=== PATIENT | female | born 1990 | race Two or more races ===

== ENCOUNTER → 2020-01-27 | Outpatient (CLI) | payer OTHER | LOC: M LABSMTC 13:02 | PROVIDERS: ATTEND Pediatrics | DX: Z11.59 Encounter for screening for other viral diseases (principal) | CPT/HCPCS: C9803; U0003 ==

== ENCOUNTER → 2020-08-01 | Outpatient (CLI) | payer SELFPAY | LOC: M LABSMTC 09:44 | PROVIDERS: ATTEND Pediatrics | DX: Z20.822 Contact with and (suspected) exposure to COVID-19 (principal) ==

== ENCOUNTER → 2020-08-10 | Outpatient (CLI) | payer SELFPAY | LOC: M LABSMTC 12:05 | PROVIDERS: ATTEND Pediatrics | DX: Z20.822 Contact with and (suspected) exposure to COVID-19 (principal) ==

== ENCOUNTER 2021-06-26 16:11 | Emergency (ER) | payer OTHER ==
[~2021-06-26] VITALS: Ht 167.6 cm; Wt 58.1 kg
[2021-06-26 16:12] VITALS: BP 114/66
--- OUTSIDE RECORDS SUMMARY | 2021-06-26 16:21 | CCD | Continuity of Care Document ---
Author Author Kelly SAAVEDRA F.N.P. Organization Unknown Address [address] [place] [address] Phone [phone] Care Team Providers Care Blow Off Worker Name Role Phone Radha Sr DO AUTM [phone] Problems Description No Information Available Social History Type Date Description Comments Sex Unknown Sun Exposure moderate amount of sun exposure Sun Exposure Has never used tanning bed Sun Exposure Has never experienced blistering from sunburns Sun Exposure Uses 15-30 SPF Allergies, Adverse Reactions, Alerts Description No Known Drug Allergies Medications Active Medications SIG Qnty Indications Ordering Provide r Date Hydroquinone 4% Emulsion apply to trunk daily 30gm Roshni Saavedra F.N.P. 2020 Sodium Sulfacetamide/Sulfur Cleanser 10-5% Emulsion cleanse face daily 170gm CHELLE Vasquez PParishC 02/07/2020 Immunizations Description No Information Available Vital Signs Date Vital Result Comment 08/03/2020 2:56pm Body Temperature 96.7 F 05/20/2020 5:03pm BP Systolic 112 mmHg BP Diastolic 62 mmHg Weight 118.00 lb Body Temperature 98.7 F Results Description No Information Available Procedures Description No Information Available Medical Devices Description No Information Available Encounters Description No Information Available Assessments Date Code Description Provider 03/15/2021 L98.8 Other specified disorders of the skin and subcutaneous tissue Zina Ly.N.P. 01/29/2021 L98.8 Other specified disorders of the skin and subcutaneous tissue Zina Ly.N.P. 12/22/2020 L98.8 Other specified disorders of the skin and subcutaneous tissue Zina Ly.N.P. 12/22/2020 L81.9 Hyperpigmentation of skin Cassy Hazel 11/17/2020 L98.8 Other specified disorders of the skin and subcutaneous tissue Mary LyNHafsa. 11/17/2020 L81.9 Hyperpigmentation of skin Cassy Hazel Plan of Treatment Future Appointment(s):* 04/26/2021 5:00 pm - [facility] 12/22/2020 - Mary LyN.Aleah.* L98.8 Other specified disorders of the skin and subcutaneous tissue* Comments:* Patient tolerated well. Verbalizes understanding of Patient Education provided.Call with problems. * L81.9 Hyperpigmentation of skin* Comments:* See above. Functional Status Description No Information Available Mental Status Description No Information Available Referrals Description No Information Available
--- OUTSIDE RECORDS SUMMARY | 2021-06-26 16:21 | CCD | Continuity of Care Document ---
Author Author Kelly SAAVEDRA F.N.P. Organization Unknown Address [address] [place] [address] Phone [phone] Care Team Providers Care Pediatric Speech Therapist Name Role Phone Radha Sr DO AUTM Problems Description No Information Available Social History [...]
--- OUTSIDE RECORDS SUMMARY | 2021-06-26 16:21 | CCD ---
Author Author [facility] Organization [facility] Address Unknown Phone Unavailable Care Team Providers Care Superannuation Funds Manager Name Role Phone Bandar Ledesma Unavailable PROBLEMS Type Condition ICD9-CM Code BUR26-CX Code Onset Dates Condition S tatus W/U Status Risk SNOMED Code Notes Problem Irregular menses N92.6 Active confirmed 376 [id number] ALLERGIES No Known Allergies ENCOUNTERS from 1990 to 2021-06-04 Encounter Location Date Provider Diagnosis [facility] [address] [place] [address] [place] [address] May, Bandar Ledesma IMMUNIZATIONS No Information SOCIAL HISTORY Tobacco Use: Social History Observation Description Date Details (start date - stop date) Never Smoker Sex Assigned At : Social History Observation Description Sex Assigned At Unknown Language: Question Answer Notes Languages spoken: Slovenian Tobacco Use: Question Answer Notes Are you a: never smoker REASON FOR REFERRAL No Information VITAL SIGNS No information MEDICATIONS Medication SIG (Take, Route, Frequency, Duration) Notes Start Da te End Date Status Microgestin FE 1.5/30 1.5-30 MG-MCG 1 tablet Orally Once a day f or 28 day(s) Active PROCEDURES No Information RESULTS No Results REASON FOR VISIT Update Demographics - Additional Info Goals Section No Information Health Concerns No Information MEDICAL EQUIPMENT No Information MENTAL STATUS No Information FUNCTIONAL STATUS No Information ASSESSMENTS No Information PLAN OF TREATMENT Medication Medication Name Sig Start Date Stop Date Microgestin FE 1.5/30 1.5-30 MG-MCG 1 tablet Orally Once a day f or 28 day(s) Next Appt Details Provider Name:Bandar Ledesma, 2021-12- 15 09:40:00 AM, [address], , [place], [address], Insurance Providers Payer Name Payer Address Payer Phone Insured Name Patient Relati onship to Insured Coverage Start Date Coverage End Date [address] [phone] MARIO SNYDER
--- OUTSIDE RECORDS SUMMARY | 2021-06-26 16:21 | CCD ---
Author Author [facility] Organization [facility] Address Unknown Phone Unavailable Care Team Providers Care Director Of Retention Name Role Phone Bandar Ledesma Unavailable PROBLEMS Type Condition ICD9-CM Code BWT76-TA Code Onset Dates Condition S tatus W/U Status Risk SNOMED Code Notes Problem Irregular menses N92.6 Active confirmed [phone] 80021 ALLERGIES No Known Allergies ENCOUNTERS from 1990 to 2021-06-04 Encounter Location Date Provider Diagnosis [facility] [address] [place] [address] [place] [address] May, Bandar Ledesma IMMUNIZATIONS No Information SOCIAL HISTORY Tobacco Use: Social History Observation Description Date Details (start date - stop date) Never Smoker Sex Assigned At : Social History Observation Description Sex Assigned At Unknown Language: Question Answer Notes Languages spoken: Swiss Tobacco Use: Question Answer Notes Are you a: never smoker REASON FOR REFERRAL No Information VITAL SIGNS No information MEDICATIONS Medication SIG (Take, Route, Frequency, Duration) Notes Start Da te End Date Status Microgestin FE 1.5/30 1.5-30 MG-MCG 1 tablet Orally Once a day f or 28 day(s) Active PROCEDURES No Information RESULTS No Results REASON FOR VISIT Update Demographics - Personal Info Goals Section No Information Health Concerns No Information MEDICAL EQUIPMENT No Information MENTAL STATUS No Information FUNCTIONAL STATUS No Information ASSESSMENTS No Information PLAN OF TREATMENT Medication Medication Name Sig Start Date Stop Date Microgestin FE 1.5/30 1.5-30 MG-MCG 1 tablet Orally Once a day f or 28 day(s) Next Appt Details Provider Name:Bandar Ledesma, 2021-12- 15 09:40:00 AM, [address] [facility], , [place], [address], Insurance Providers Payer Name Payer Address Payer Phone Insured Name Patient Relati onship to Insured Coverage Start Date Coverage End Date [address] [phone] MARIO SNYDER
--- OUTSIDE RECORDS SUMMARY | 2021-06-26 16:21 | CCD ---
Author Author [facility] Organization [facility] Address Unknown Phone Unavailable Care Team Providers Care Terrazzo Layer Name Role Phone [place], María Elena NURSING AGENCY MANAGER Unavailable Unavailable [place], María Elena NURSING AGENCY MANAGER Unavailable Unavailable [place], María Elena NURSING AGENCY MANAGER Unavailable Unavailable [place], María Elena NURSING AGENCY MANAGER Unavailable Unavailable [place], María Elena NURSING AGENCY MANAGER Unavailable Unavailable [place], María Elena NURSING AGENCY MANAGER Unavailable Unavailable [place], María Elena NURSING AGENCY MANAGER Unavailable Unavailable [place], María Elena NURSING AGENCY MANAGER Unavailable Unavailable [place], María Elena NURSING AGENCY MANAGER Unavailable Unavailable [place], María Elena NURSING AGENCY MANAGER Unavailable Unavailable [place], María Elena NURSING AGENCY MANAGER Unavailable Unavailable [place], María Elena NURSING AGENCY MANAGER Unavailable Unavailable [place], María Elena NURSING AGENCY MANAGER Unavailable Unavailable [place], María Elena NURSING AGENCY MANAGER Unavailable Unavailable [place], María Elena NURSING AGENCY MANAGER Unavailable Unavailable [place], María Elena NURSING AGENCY MANAGER Unavailable Unavailable [place], María Elena NURSING AGENCY MANAGER Unavailable Unavailable [place], María Elena NURSING AGENCY MANAGER Unavailable Unavailable [place], María Elena NURSING AGENCY MANAGER Unavailable Unavailable [place], María Elena NURSING AGENCY MANAGER Unavailable Unavailable [place], María Elena NURSING AGENCY MANAGER Unavailable Unavailable [place], María Elena NURSING AGENCY MANAGER Unavailable Unavailable [place], María Elena NURSING AGENCY MANAGER Unavailable Unavailable [place], María Elena NURSING AGENCY MANAGER Unavailable Unavailable [place], María Elena NURSING AGENCY MANAGER Unavailable Unavailable [place], María Elena NURSING AGENCY MANAGER Unavailable Unavailable [place], María Elena NURSING AGENCY MANAGER Unavailable Unavailable [place], María Elena NURSING AGENCY MANAGER Unavailable Unavailable [place], María Elena NURSING AGENCY MANAGER Unavailable Unavailable [place], María Elena NURSING AGENCY MANAGER Unavailable Unavailable [place], María Elena NURSING AGENCY MANAGER Unavailable Unavailable [place], María Elena NURSING AGENCY MANAGER Unavailable Unavailable [place], María Elena NURSING AGENCY MANAGER Unavailable Unavailable [place], María Elena NURSING AGENCY MANAGER Unavailable Unavailable [place], María Elena NURSING AGENCY MANAGER Unavailable Unavailable [place], María Elena NURSING AGENCY MANAGER Unavailable Unavailable Elham THAKUR MD Unavailable Unavailable Elham THAKUR MD Unavailable Unavailable Elham THAKUR MD Unavailable Unavailable Elham THAKUR MD Unavailable Unavailable Re-disclosure Warning The records that you are about to access may contain information from federally-assisted alcohol or drug abuse programs. If such information is present, then the following federally mandated warning applies: This information has been disclosed to you from records protected by federal confidentiality rules (42 CFR part 2). The federal rules prohibit you from making any further disclosure of this information unless further disclosure is expressly permitted by the written consent of the person to whom it pertains or as otherwise permitted by 42 CFR part 2. A general authorization for the release of medical or other information is NOT sufficient for this purpose. The Federal rules restrict any use of the information to criminally investigate or prosecute any alcohol or drug abuse patient.The records that you are about to access may contain highly sensitive health information, the redisclosure of which is protected by Article 27-F of the [place] State Public Health law. If you continue you may have access to information: Regarding HIV / AIDS; Provided by facilities licensed or operated by the [facility] Office of Mental Health; or Provided by the [facility] Office for People With Developmental Disabilities. If such information is present, then the following [facility] mandated warning applies: This information has been disclosed to you from confidential records which are protected by state law. State law prohibits you from making any further disclosure of this information without the specific written consent of the person to whom it pertains, or as otherwise permitted by law. Any unauthorized further disclosure in violation of state law may result in a fine or residential sentence or both. A general authorization for the release of medical or other information is NOT sufficient authorization for further disc losure. Allergies and Adverse Reactions Type Description Substance Reaction Status Data Source(s ) No Known Drug Allergies No Known Drug Allergies [facility] Encounters Encounter Providers Location Date Indications Data Source(s ) Unknown [address] [facility] [address] 06/25/2021 12:00:00 AM EST eCW1 ([facility]) [place] [address] [facility] [address] 06/03/2021 12:00:00 AM EST eCW1 ([facility]) Unknown [address] [facility] [address] 06/03/2021 12:00:00 AM EST eCW1 ([facility]) Outpatient 03/19/2021 02:41:26 PM EDT - 021 03:14:43 PM EDT DocuTa ([facility]) Office Visit Attender: Roshni Hester [facility] Main Office 09/14/2020 04:00:00 PM EST [facility] Out[facility] Attender: CHAZ THAKUR MDConsultant: CHAZ VILLEGAS MD 09/03/2020 07:46:00 AM EST - 09/04/2020 10:16:00 AM [facility] Patient discharged. Outpatient Attender: CHAZ THAKUR MDConsultant: CHAZ VILLEGAS MD 07/31/2020 03:39:00 PM [facility] Immunizations Vaccine Date Status Description Data Source(s) COVID-19 VACCINE Moderna 09/04/2020 12:00:00 AM EST completed [facility] Vaccine Series Complete: YESThis Data wa s Submitted to [facility] [employer]. COVID-19 VACCINE Moderna 07/31/2020 12:00:00 AM EST completed [facility] Vaccine Series Complete: NOThis Data was Submitted to [facility] [employer]. INFLUENZA VIRUS VACCINE QUADRIVAL [id number](6 MOS AND UP)/PF 05/11/2020 12:00:00 AM EDT completed [facility] Medications Medication Brand Name Start Date Product Form Dose Route Admi nistrative Instructions Pharmacy Instructions Status Indications Reaction Description Data Source(s) hydroquinone 40 MG/ML Topical Solution Hydroquinone 12:00:00 AM EDT active MEDENT ( [facility]) Microgestin Fe 1.530 Microgestin Fe 1.530 07/14/2020 12:00:00 AM EST ORAL active [facility] ([facility]) Insurance Providers Payer name Policy type / Coverage type Policy ID Covered constitution party ID Covered constitution party's relationship to sotelo Policy Sotelo Plan Information [facility] Plan / [id number] Self [id number] [facility] [id number] SELF PAY ONLY [id number] SP [id number] Problems, Conditions, and Diagnoses Code Display Name Description Problem Type Effective Dates Data Source(s) Z23 Encounter for immunization Encounter for immunization Diagnosis 07/31/2020 03:39:00 PM EST [facility] Surgeries/Procedures No Information Results ID Date Data Source [id number] 03/19/2021 03:15:00 PM EDT [facility] Name Value Range Interpretation Code Description Data Lauren rce(s) Supporting Document(s) SARS-CoV-2 RNA Resp Ql EDWIN+probe NOT DETECTED [facility] This lab was ordered by UZAIR gonzalez and reported by UZA[facility] Loya. ID Date Data Source [id number] 08/22/2020 12:00:00 AM EST [facility] Name Value Range Interpretation Code Description Data Lauren rce(s) Supporting Document(s) SARS-CoV2 Rapid Antigen Negative [facility] This lab was ordered by [facility] and reported by [facility]. ID Date Data Source [id number] 08/17/2020 12:00:00 AM EST [facility] Name Value Range Interpretation Code Description Data Lauren rce(s) Supporting Document(s) SARS-CoV2 Rapid Antigen Negative [facility] This lab was ordered by [facility] and reported by [facility]. ID Date Data Source [id number] 08/14/2020 08:37:00 PM EST [facility] Name Value Range Interpretation Code Description Data Lauren rce(s) Supporting Document(s) SARS coronavirus 2 RNA [Presence] in Res piratory specimen by EDWIN with probe detection Negative [facility] This lab was ordered by [facility] and reported by [facility]. ID Date Data Source [id number] 08/10/2020 12:05:00 PM EST MEDENT ([facility]) Name Value Range Interpretation Code Description Data Lauren rce(s) Supporting Document(s) Laboratory test finding (navigational concept) [facility] Test: COVID-19 Nasal/Naspharynx Result: NOT DETECTED Reference Units: Not detected Note: Please consider re-collection of a new specimen, if clinically indicated. Note: The COVID-19 assay is under Emergency Use Authorization(EUA) by the U.S. Food and Drug Administration. [employer] is designated as a high complexity laboratory by the Clinical Laboratory Improvement Amendments of 1988(CLIA) and is qualified to perform this test. ASSAY INFORMATION: Real Time RT-PCR or TMA. ID Date Data Source [id number] 08/10/2020 12:00:00 AM EST [facility] Name Value Range Interpretation Code Description Data Lauren rce(s) Supporting Document(s) SARS-CoV-2 (COVID-19) RNA [Presence] in Respiratory specimen by EDWIN with probe detection Not Detected [facility] This lab was ordered by [facility] and reported by [employer]. ID Date Data Source [id number] 08/01/2020 09:05:00 AM EST MEDENT ([facility]) Name Value Range Interpretation Code Description Data Lauren rce(s) Supporting Document(s) Laboratory test finding (navigational concept) [facility] Test: COVID-19 Nasal/Naspharynx Result: NOT DETECTED Reference Units: Not detected Note: Please consider re-collection of a new specimen, if clinically indicated. Note: The COVID-19 assay is under Emergency Use Authorization(EUA) by the U.S. Food and Drug Administration. [employer] is designated as a high complexity laboratory by the Clinical Laboratory Improvement Amendments of 1988(CLIA) and is qualified to perform this test. ASSAY INFORMATION: Real Time RT-PCR ID Date Data Source [id number] 08/01/2020 12:00:00 AM [facility] Name Value Range Interpretation Code Description Data Lauren rce(s) Supporting Document(s) SARS-CoV-2 (COVID-19) RNA [Presence] in Respiratory specimen by EDWIN with probe detection Not Detected [facility] This lab was ordered by [facility] and reported by [employer] ID Date Data Source [id number] 07/27/2020 12:00:00 AM EST [facility] Name Value Range Interpretation Code Description Data Lauren rce(s) Supporting Document(s) SARS-CoV2 Rapid Antigen [facility] This lab was ordered by [facility] and reported by [facility]. ID Date Data Source [id number] 07/14/2020 12:00:00 AM EST [facility] Name Value Range Interpretation Code Description Data Lauren rce(s) Supporting Document(s) SARS coronavirus 2 RNA [facility] This lab was ordered by [employer] and rep orted by [facility]. Procedure Social History Code Duration Value Status Description Data Source(s ) Smoking 01/26/2021 12:00:00 AM EDT Patient has never smoked co mpleted Patient has never smoked MED[facility] ([facility]) Vital Signs ID Date Data Source UNK Name Value Range Interpretation Code Description Data Source(s) Systolic blood pressure 108 mm[Hg] 108 mm[Hg] M EDENT ([facility]) Diastolic blood pressure 64 mm[Hg] 64 mm[Hg] MEDENT ([facility]) Body height 65.25 [in_i] 65.25 [in_i] MEDENT ([facility]) 5'5.25" Body weight 122.50 [lb_av] 122.50 [lb_av] MEDEN T ([facility]) Body mass index (BMI) [Ratio] 20.2 kg/m2 20.2 k g/m2 MED[facility] ([facility]) Heart rate 75 /min 75 /min [facility] Respiratory rate 18 /min 18 /min [facility] Body temperature 98.4 [degF] 98.4 [degF] [facility] Oxygen saturation in Arterial blood by Pulse oximetry 98 % 98 % [facility] [place] body weight 125 [lb_av] 125 [lb_av] MEDEN T ([facility]) Body temperature 96.7 [degF] 96.7 [degF] MEDENT ([facility]) Body temperature 96.7 [degF] 96.7 [degF] MED[facility] ([facility]) Body weight 118.00 [lb_av] 118.00 [lb_av] MEDEN T ([facility]) Body temperature 98.7 [degF] 98.7 [degF] [facility]ENT ([facility]) Systolic blood pressure 112 mm[Hg] 112 mm[Hg] M EDENT ([facility]) Diastolic blood pressure 62 mm[Hg] 62 mm[Hg] MED[facility] ([facility]) Body weight 118.00 [lb_av] 118.00 [lb_av] MEDEN T ([facility]) Body temperature 98.7 [degF] 98.7 [degF] MED[facility] ([facility]) ID Date Data Source [id number] 09/11/2020 10:16:21 AM EST [facility] Name Value Range Interpretation Code Description Data Source(s) WEIGHT RECORDED 118.00 pounds 118.00 pounds [facility] Height 66 Inches 066 Inches [facility]
[2021-06-26] MEDS ORDERED: MULTTAB20 PO (16:59)
[2021-06-26 17:30] LABS: BASO % 0.5 % (0.0-1.0); EOS # 0.3 10^3/uL (0.0-0.5); EOS % 3.1 % (0.0-3.0); HEMATOCRIT 40.3 % (36.0-47.0); HEMOGLOBIN 13.2 g/dl (12.0-15.5); LYMPH # 1.6 10^3/uL (1.5-5.0); MEAN CORPUSCULAR HEMOGLOBIN 29.5 pg (27.0-33.0); MEAN CORPUSCULAR HGB CONC 32.8 g/dl (32.0-36.5); MEAN CORPUSCULAR VOLUME 90.2 fl (80.0-96.0); MONO # 0.7 10^3/uL (0.0-0.8); MONO % 8.6 % (2.0-8.0); NEUTROPHILS # 5.8 10^3/uL (1.5-8.5); NEUTROPHILS % 68.6 % (36.0-66.0); PLATELET COUNT, AUTOMATED 292 10^3/uL (150-450); RED BLOOD COUNT 4.47 10^6/uL (4.00-5.40); WHITE BLOOD COUNT 8.5 10^3/uL (4.0-10.0)
--- OUTSIDE RECORDS SUMMARY | 2021-06-26 17:39 | CCD ---
Author Author [facility] Address Unknown Phone Unavailable Care Team Providers Care Pan Greaser Name Role Phone Hampton, María Elena JAVASCRIPT PROGRAMMER Unavailable Unavailable Hampton, María Elena JAVASCRIPT PROGRAMMER Unavailable Unavailable Hampton, María Elena JAVASCRIPT PROGRAMMER Unavailable Unavailable Hampton, María Elena JAVASCRIPT PROGRAMMER Unavailable Unavailable Hampton, María Elena JAVASCRIPT PROGRAMMER Unavailable Unavailable Hampton, María Elena JAVASCRIPT PROGRAMMER Unavailable Unavailable Hampton, María Elena JAVASCRIPT PROGRAMMER Unavailable Unavailable Hampton, María Elena JAVASCRIPT PROGRAMMER Unavailable Unavailable Hampton, María Elena JAVASCRIPT PROGRAMMER Unavailable Unavailable Hampton, María Elena JAVASCRIPT PROGRAMMER Unavailable Unavailable Hampton, María Elena JAVASCRIPT PROGRAMMER Unavailable Unavailable Hampton, María Elena JAVASCRIPT PROGRAMMER Unavailable Unavailable Hampton, María Elena JAVASCRIPT PROGRAMMER Unavailable Unavailable Hampton, María Elena JAVASCRIPT PROGRAMMER Unavailable Unavailable Hampton, María Elena JAVASCRIPT PROGRAMMER Unavailable Unavailable Hampton, María Elena JAVASCRIPT PROGRAMMER Unavailable Unavailable Hampton, María Elena JAVASCRIPT PROGRAMMER Unavailable Unavailable Hampton, María Elena JAVASCRIPT PROGRAMMER Unavailable Unavailable Hampton, María Elena JAVASCRIPT PROGRAMMER Unavailable Unavailable Hampton, María Elena JAVASCRIPT PROGRAMMER Unavailable Unavailable Hampton, María Elena JAVASCRIPT PROGRAMMER Unavailable Unavailable Hampton, María Elena JAVASCRIPT PROGRAMMER Unavailable Unavailable Hampton, María Elena JAVASCRIPT PROGRAMMER Unavailable Unavailable Hampton, María Elena JAVASCRIPT PROGRAMMER Unavailable Unavailable Hampton, María Elena JAVASCRIPT PROGRAMMER Unavailable Unavailable Hampton, María Elena JAVASCRIPT PROGRAMMER Unavailable Unavailable Hampton, María Elena JAVASCRIPT PROGRAMMER Unavailable Unavailable Hampton, María Elena JAVASCRIPT PROGRAMMER Unavailable Unavailable Hampton, María Elena JAVASCRIPT PROGRAMMER Unavailable Unavailable Hampton, María Elena JAVASCRIPT PROGRAMMER Unavailable Unavailable Hampton, María Elena JAVASCRIPT PROGRAMMER Unavailable Unavailable Hampton, María Elena JAVASCRIPT PROGRAMMER Unavailable Unavailable Hampton, María Elena JAVASCRIPT PROGRAMMER Unavailable Unavailable Hampton, María Elena JAVASCRIPT PROGRAMMER Unavailable Unavailable Hampton, María Elena JAVASCRIPT PROGRAMMER Unavailable Unavailable Hampton, María Elena JAVASCRIPT PROGRAMMER Unavailable Unavailable Elham THAKUR MD Unavailable Unavailable [...] is protected by Article 27-F of the [place] State Public Health law. If you continue you may have access to information: Regarding HIV / AIDS; Provided by facilities licensed or operated by the [facility] Office of Mental Health; or Provided by the [facility] Office for People With Developmental Disabilities. If such information is present, then the following [facility] mandated warning applies: This information has been [...] law may result in a fine or usp sentence or both. A general authorization for the release of medical or other information is NOT sufficient authorization for further disc losure. Allergies and Adverse Reactions Type Description Substance Reaction Status Data Source(s ) No Known Drug Allergies No Known Drug Allergies [facility] Encounters Encounter Providers Location Date Indications Data Source(s ) [place] [address] [facility] [address] 06/25/2021 12:00:00 AM EST [facility]CW1 ([facility]) [place] [address] [facility] [address] 06/03/2021 12:00:00 AM EST eCW1 ([facility]) [place] [address] [address] 06/03/2021 12:00:00 AM EST eCW1 ([facility]) Outpatient 03/19/2021 02:41:26 PM EDT - 021 03:14:43 PM EDT DocuTa ([facility]) Office Visit Attender: Roshni Hester [facility] Main Office 09/14/2020 04:00:00 PM EST [facility] Attender: CHAZ THAKUR MDConsultant: CHAZ VILLEGAS MD 09/03/2020 07:46:00 AM EST - 09/04/2020 10:16:00 AM [facility] Patient discharged. Outpatient Attender: CHAZ THAKUR MDConsultant: CHAZ VILLEGAS MD 07/31/2020 03:39:00 PM [facility] Immunizations Vaccine Date Status Description Data Source(s) COVID-19 VACCINE Moderna 09/04/2020 12:00:00 AM EST completed [facility] Vaccine Series Complete: YESThis Data wa s Submitted to [facility]. COVID-19 VACCINE Moderna 07/31/2020 12:00:00 AM EST completed [facility] Vaccine Series Complete: NOThis Data was Submitted to [facility]. INFLUENZA VIRUS VACCINE QUADRIVAL [id number](6 MOS AND UP)/PF 05/11/2020 12:00:00 AM EDT completed [facility] Medications Medication Brand Name Start Date Product Form Dose Route Admi nistrative Instructions Pharmacy Instructions Status Indications Reaction Description Data Source(s) hydroquinone 40 MG/ML Topical Solution Hydroquinone 12:00:00 AM EDT active [facility] ( [facility]) Microgestin Fe 1.530 Microgestin Fe 1.530 07/14/2020 12:00:00 AM EST ORAL active [facility] ([facility]) Insurance Providers Payer name Policy type / Coverage type Policy ID Covered libertarian ID Covered libertarian's relationship to sotelo Policy Sotelo Plan Information [facility] Plan / [id number] Self [id number] [facility] [place] [id number] SELF PAY ONLY [id number] SP [id number] Problems, Conditions, and Diagnoses Code Display Name Description Problem Type Effective Dates Data Source(s) Z23 Encounter for immunization Encounter for immunization Diagnosis 07/31/2020 03:39:00 PM EST [facility] Surgeries/Procedures No Information Results ID Date Data Source [id number] 03/19/2021 03:15:00 PM EDT [facility] Name Value [...] Negative [facility] This lab was ordered by [facility] and reported by [facility]. ID Date Data Source [id number] 08/17/2020 12:00:00 AM EST [facility] Name Value Range Interpretation Code Description Data Lauren rce(s) Supporting Document(s) SARS-CoV2 Rapid Antigen Negative [facility] This lab was ordered by [facility] and reported by [facility]. ID Date Data Source [id number] 08/14/2020 08:37:00 PM EST [facility] Name Value Range Interpretation Code Description Data Lauren rce(s) Supporting Document(s) SARS coronavirus 2 RNA [Presence] in Res piratory specimen by EDWIN with probe detection Negative [facility] This lab was ordered by [facility] and reported by [facility]. ID Date Data Source [id number] 08/10/2020 12:05:00 PM EST MEDENT ([facility]) Name Value Range Interpretation Code Description Data Lauren rce(s) Supporting Document(s) Laboratory test finding (navigational concept) [facility] Test: COVID-19 Nasal/Naspharynx Result: NOT DETECTED Reference Units: Not detected Note: Please consider re-collection of a new specimen, if clinically indicated. Note: The COVID-19 assay is under Emergency Use Authorization(EUA) by the U.S. Food and Drug Administration. [facility] is designated as a high complexity laboratory by the Clinical Laboratory Improvement Amendments of 1988(CLIA) and is qualified to perform this test. ASSAY INFORMATION: Real Time RT-PCR or TMA. ID Date Data Source [id number] 08/10/2020 12:00:00 AM EST [facility] Name Value Range Interpretation Code Description Data Lauren rce(s) Supporting Document(s) SARS-CoV-2 (COVID-19) RNA [Presence] in Respiratory specimen by EDWIN with probe detection Not Detected [facility] This lab was ordered by [facility] and reported by [facility]. ID Date Data Source [id number] 08/01/2020 09:05:00 AM EST MEDENT ([facility]) Name Value Range Interpretation Code Description Data Lauren rce(s) Supporting Document(s) Laboratory test finding (navigational concept) Laboratory test result [facility] ([facility]) Test: COVID-19 Nasal/Naspharynx Result: NOT DETECTED Reference Units: Not detected Note: Please consider re-collection of a new specimen, if clinically indicated. Note: The COVID-19 assay is under Emergency Use Authorization(EUA) by the U.S. Food and Drug Administration. [facility] is designated as a high complexity laboratory by the Clinical Laboratory Improvement Amendments of 1988(CLIA) and is qualified to perform this test. ASSAY INFORMATION: Real Time RT-PCR ID Date Data Source [id number] 08/01/2020 12:00:00 AM EST [facility] Name Value Range Interpretation Code Description Data Lauren rce(s) Supporting Document(s) SARS-CoV-2 (COVID-19) RNA [Presence] in Respiratory specimen by EDWIN with probe detection Not Detected [facility] This lab was ordered by [facility] and reported by [facility]. ID Date Data Source [id number] 07/27/2020 12:00:00 AM EST [facility] Name Value Range Interpretation Code Description Data Lauren rce(s) Supporting Document(s) SARS-CoV2 Rapid Antigen [facility] This lab was ordered by [facility] and reported by [facility]. ID Date Data Source [id number] 07/14/2020 12:00:00 AM EST [facility] Name Value Range Interpretation Code Description Data Lauren rce(s) Supporting Document(s) SARS coronavirus 2 RNA [facility] This lab was ordered by [facility] and rep orted by [facility]. Procedure Social History Code Duration Value Status Description Data Source(s ) Smoking 01/26/2021 12:00:00 AM EDT Patient has never smoked co mpleted Patient has never smoked [facility] ([facility]) Vital Signs ID Date Data Source [id number] Name Value Range Interpretation Code Description Data Source(s) Systolic blood pressure 108 mm[Hg] 108 mm[Hg] M EDENT ([facility]) Diastolic blood pressure 64 mm[Hg] 64 mm[Hg] [facility] ([facility]) Body height 65.25 [in_i] 65.25 [in_i] [facility] ([facility]) 5'5.25" Body weight 122.50 [lb_av] 122.50 [lb_av] MEDEN T ([facility]) Body mass index (BMI) [Ratio] 20.2 kg/m2 20.2 k g/m2 [facility] ([facility]) Heart rate 75 /min 75 /min [facility] Respiratory rate 18 /min 18 /min [facility] ( [facility]) Body temperature 98.4 [degF] 98.4 [degF] [facility] Oxygen saturation in Arterial blood by Pulse oximetry 98 % 98 % [facility] [place] body weight 125 [lb_av] 125 [lb_av] MEDEN T ([facility]) Body temperature 96.7 [degF] 96.7 [degF] [facility] ([facility]) Body temperature 96.7 [degF] 96.7 [degF] [facility] ([facility]) Body weight 118.00 [lb_av] 118.00 [lb_av] MEDEN T ([facility]) Body temperature 98.7 [degF] 98.7 [degF] [facility] ([facility]) Systolic blood pressure 112 mm[Hg] 112 mm[Hg] M EDENT ([facility]) Diastolic blood pressure 62 mm[Hg] 62 mm[Hg] [facility] ([facility]) Body weight 118.00 [lb_av] 118.00 [lb_av] MEDEN T ([facility]) Body temperature 98.7 [degF] 98.7 [degF] [facility] ([facility]) ID Date Data Source [id number] 09/11/2020 10:16:21 AM EST [facility] Name Value Range Interpretation Code Description Data Source(s) WEIGHT RECORDED 118.00 pounds 118.00 pounds [facility] Height 66 Inches 066 Inches [facility]
--- NOTE | 2021-06-26 18:01 | REP ---
INDICATION: vaginal bleeding, 11 weeks . COMPARISON: None. TECHNIQUE: Transabdominal scanning is performed. FINDINGS: Scanning demonstrates a intrauterine gestational sac. There is an embryonic pole within the sac. 5 mm crown-rump length corresponds with a 6 week 2 day gestational age estimate. Mean sac size diameter of 19 mm corresponds with a 6 week 4 day gestational age estimate. The patient is 10 weeks 5 days by last menstrual period. No motion or cardiac motion could be observed. A enlarged appearing yolk sac is seen. No extra uterine abnormality is noted. The left ovary is not seen directly. Right ovary is normal measuring 3.2 x 2.4 x 2.6 cm. It is Doppler flow is normal, resistive index 0.59. IMPRESSION: There is an embryonic pole within the gestational sac in the uterus at 6 weeks 2 days by crown-rump length. No motion or cardiac motion is observed. viability cannot be confirmed. <Electronically signed by Francis Herrera > 06/26/21 [id number]
== END 2021-06-26 19:17 | disposition home or self-care (01) ==
LOC: M ED 16:11
DX: O20.0 Threatened abortion (principal); O46.91 Antepartum hemorrhage, unspecified, first trimester; Z3A.01 Less than 8 weeks gestation of pregnancy; Z79.899 Other long term (current) drug therapy

== ENCOUNTER → 2021-06-28 | Outpatient (CLI) | payer OTHER ==
[~2021-06-28] MED LIST: MULTTAB20 PO
== END ==
LOC: M PLALAB 10:29
PROVIDERS: ATTEND Advanced Practice Midwife
DX: O20.0 Threatened abortion (principal)